=== PATIENT | male | born 1985 | race Caucasian/White ===

== ENCOUNTER 2018-09-28 09:38 | Emergency (ER) | payer BC ==
[~2018-09-28] VITALS: Ht 182.9 cm; Wt 95.3 kg
[2018-09-28 10:31] LABS: URINE BILIRUBIN NEGATIVE (Negative); URINE BLOOD NEGATIVE (Negative); URINE CLARITY CLEAR; URINE COLOR YELLOW; URINE GLUCOSE-RANDOM NEGATIVE (Negative); URINE KETONES NEGATIVE (Negative); URINE LEUKOCYTES-REFLEX NEGATIVE (Negative); URINE NITRITE-REFLEX NEGATIVE (Negative); URINE PROTEIN NEGATIVE (Negative); URINE SPECIFIC GRAVITY >= 1.030 (1.005-1.030); URINE UROBILINOGEN 0.2 E.U./dl (0.2-1.0)
[2018-09-28 12:26] VITALS: BP 121/89
== END 2018-09-28 12:26 | disposition home or self-care (01) ==
LOC: M.ERS 09:38
PROVIDERS: Personal Emergency Response Attendant
DX: K40.90 Unilateral inguinal hernia, without obstruction or gangrene, not specified as recurrent (principal); R82.998 Other abnormal findings in urine

== ENCOUNTER → 2018-10-21 | Day surgery (SDC) | payer BC ==
--- NOTE | ~2018-10-21 | OP ---
[address] [address] OPERATIVE REPORT Name: CASNATALY Ballard Room: [facility].#: [id number] Admission: 10/21/18 Attend Phys: Hood Moffett DO Discharge: Date of : 87 Report #: [id number] THIS REPORT FOR: //name// CC: Hood Moffett NO PCP DATE OF SERVICE: 10/21/2018 PREOPERATIVE DIAGNOSES: 1. Left inguinal hernia. 2. Umbilical hernia. 3. Cyst of the right eyelid. POSTOPERATIVE DIAGNOSES: 1. Left indirect and direct inguinal hernia. 2. Right indirect inguinal hernia. 3. Umbilical hernia. 4. Sebaceous cyst of the right eyelid. PROCEDURE: Da Fabiola robotic-assisted laparoscopic bilateral inguinal hernia repair with mesh and open umbilical hernia repair and excision of cyst of the right eyelid. SURGEON: Hood Moffett D.O. FIELD SERVICE ANALYST: Maddi Esteves, PGY5 resident. ANESTHESIA: General endotracheal. ESTIMATED BLOOD LOSS: Less than 20 mL. COMPLICATIONS: None. DESCRIPTION OF PROCEDURE: After obtaining proper consents and discussing risks and complications with the patient, he was taken to the operating room, laid in the supine position, administered general anesthesia. He was then prepped and draped in the usual sterile fashion. Timeout was performed. We confirmed the appropriate patient and procedure. Preoperative antibiotics had been given. SCDs were in place. The sites had been marked in the preoperative holding area. We then made a small supraumbilical skin incision with #11 scalpel blade. This was carried down through the skin into the subcutaneous tissue using electrocautery for hemostasis. Once the fascia was encountered, we then dissected the umbilical hernia sac free from the umbilicus. The hernia sac was opened and its contents were inverted back into the peritoneal cavity. The umbilical hernia defect was approximately 1 cm in diameter. We did place 2-0 Prolene sutures in a [id number] fashion to secure the da Fabiola camera port, [place] [address] OPERATIVE REPORT Name: NATALY CARDOZO Room: [facility]#: [id number] Admission: 10/21/18 Attend Phys: Hood Moffett DO Discharge: Date of : 87 Report #: [id number] which was then inserted directly through the hernia defect. Once the port was inserted, insufflation was begun. Once insufflation was complete, full visual inspection of the anterior abdominal organs was performed. This revealed a left direct inguinal hernia and a small left indirect inguinal hernia. We also identified a very small right indirect inguinal hernia. Because I had discussed this with the patient and we had told him that if we would encounter bilateral hernias, we would repair them. We then proceeded to do bilateral laparoscopic inguinal hernia repairs. I started on the left and I opened the peritoneum from the median umbilical ligament laterally to the ASIS. I then developed the preperitoneal space starting medially and going all the way down to below the pubic ramus. We then encountered a fairly large direct inguinal hernia. This was dissected free and reduced back into the peritoneal cavity. I then continued the dissection laterally and we did identify a small indirect inguinal hernia as well as a small cord lipoma which was excised. I then continued the dissection all the way laterally to make the space large enough to place a large Bard 3DMax mesh. Next, our attention was turned towards the right side where similarly the preperitoneal space was opened from the median umbilical ligament laterally to the ASIS. Dissection was performed medially all the way down below the pubic ramus. I then continued the dissection along the spermatic cord, and we dissected the small indirect inguinal hernia sac free. I then was able to continue the dissection laterally all the way to the ASIS allowing for placement of a large Bard 3DMax mesh. We then inserted the meshes on the right and left. They were sutured in place at Arie's ligament and then medial and lateral to the inferior epigastric vessels using 2-0 Vicryl suture. We then closed the peritoneal flap on both sides using a running 2-0 V-Loc absorbable suture. We then undocked the da Fabiola robot. Once the robot was undocked, we used a PMI closure device to close the 12-mm trocar site in the right upper quadrant. We then closed the umbilical hernia defect using the 2 previously placed 0 Prolene sutures plus 2 additional 0 Prolene sutures in a ybxegk-lq-hmwxa fashion. We reattached the umbilicus to the fascia using a 3-0 Vicryl suture. The skin incisions were all closed using 4-0 Monocryl subcuticular stitches. Mastisol, Steri-Strips, sterile OpSite and pressure dressings were placed. Once this was all done, we then tore down the drapes and then reprepped and redraped for excision of the right eyelid cyst. This was done by making an elliptical incision around the cyst. The cyst was then sharply dissected free using tenotomy scissors as well as blunt dissection. Once the entire cyst was removed intact, pressure was held and electrocautery was used to maintain hemostasis. We then closed the skin incision using a 5-0 Monocryl subcuticular stitch. The entire length of that incision was 1.5 cm. The cyst that was removed was 1.5 cm in diameter. The patient then had Dermabond placed. He was awakened in the operating room and transported to recovery room in stable condition. By: 1605 Sarina Moffett DO /nt
--- NOTE | 2018-10-23 14:06 | PATH ---
[facility] [address] [place] [address] PATHOLOGY RPT PROCEDURE Name: SHALOM CARDOZO Room: [facility].R.#: [id number] Admission: 10/21/18 Date of : 87 Discharge: Report #: [id number] Path Case #: [id number] [facility] Accession Number: [id number] . 01 Material submitted: . eye - RIGHT EYE CYST. Modifiers: right . 01 Clinical history: . Left inguinal hernia, umbilical hernia, epidermal inclusion cyst right eyelid . 02 Diagnosis: Right eye cyst: - Epidermal inclusion cyst. (PARIS/db; 10/23/2018) LBQ/10/23/2018 . 02 Electronically signed: . Neeraj York MD, Pathologist NPI- [id number] . 01 Gross description: . The specimen is received in formalin, labeled "Chey, Shalom, right eye cyst" and consists of a focally disrupted white-brunson cyst measuring 1.5 x 1.2 x 0.8 cm. The cyst contains soft amorphous white material and a inside outside sales representative section is submitted in A1. (SDY; 10/22/2018) SYU/SYU . 02 Pathologist provided ICD-10: L72.0 . 02 CPT . 566094 Specimen Comment: A courtesy copy of this report has been sent to Specimen Comment: [phone]. Specimen Comment: Report sent to Performed at: [address], [place], [place] [id number] MD Yousif Lieberman MD Phone: [phone] Performed at: 02 [facility] [address], [place], [place] [id number] MD Neeraj York MD Phone: [phone]
== END | disposition home or self-care (01) ==
LOC: M.SUR 06:24
DX: K40.20 Bilateral inguinal hernia, without obstruction or gangrene, not specified as recurrent (principal); K42.0 Umbilical hernia with obstruction, without gangrene; L72.0 Epidermal cyst; D17.6 Benign lipomatous neoplasm of spermatic cord

== ENCOUNTER 2020-01-05 09:52 | Emergency (ER) | payer BC ==
[~2020-01-05] VITALS: Ht 188 cm; Wt 95.3 kg
[2020-01-05] MEDS ORDERED: ZANAFLEX4 MG PO (13:54)
[2020-01-05] MEDS ORDERED: IBUPROFEN 800800 M1 PO (13:54)
[2020-01-05] MEDS ORDERED: MEDROLDOSEPACK PO (13:54)
[2020-01-05 14:18] VITALS: BP 155/92
== END 2020-01-05 14:19 | disposition home or self-care (01) ==
LOC: M.ERS 09:52
DX: M54.5 Low back pain (principal); G89.29 Other chronic pain; R20.2 Paresthesia of skin

== ENCOUNTER 2021-02-23 09:07 | Emergency (ER) | payer BC ==
[~2021-02-23] VITALS: Ht 182.9 cm; Wt 86.2 kg
[~2021-02-23 09:07] MED LIST: IBUPROFEN 800800 M1 PO; MEDROLDOSEPACK PO; ZANAFLEX4 MG PO
[2021-02-23] MEDS ORDERED: AMOX TR-K CLV1 EAC4 PO (09:18)
[2021-02-23] MEDS ORDERED: BACTRIM DS TAB1 EAC1 PO (09:31)
[2021-02-23] MEDS ORDERED: CEPHALEXIN500 MG PO (09:31)
[2021-02-23 09:43] VITALS: BP 139/88
== END 2021-02-23 09:44 | disposition home or self-care (01) ==
LOC: M.ERS 09:07
DX: L03.011 Cellulitis of right finger (principal); Z79.899 Other long term (current) drug therapy